=== PATIENT | female | born 1985 | race Two or more races ===

== ENCOUNTER 2023-10-14 10:00 | Inpatient (IN) | payer OTHER ==
[~2023-10-14] VITALS: Ht 165.1 cm; Wt 68.0 kg
[2023-10-14 12:24] LABS: PH,URINE 7.5 (5.0-8.0); URINE APPEARANCE Clear; URINE BILIRRUBIN Negative (NEGATIVE); URINE BLOOD Negative; URINE COLOR Yellow; URINE GLUCOSE Negative (NEGATIVE); URINE LEUKOCYTE Trace; URINE NITRATE Negative; URINE PROTEIN Negative (NEGATIVE); URINE UROBILINOGEN 0.2 E.U./dl
[2023-10-14 12:26] LABS: HEMOGLOBIN 11.8 g/dL (12.0-15.00); MEAN CELL VOLUME 73.7 fL (80.00-100.00); MEAN CORPUSCULAR HEMOGLOBIN 24.3 pg (27.00-32.0); MEAN CORPUSCULAR HGB CONC 32.9 g/dl (32.0-36.0); PLATELET COUNT 305 K/uL (150-450); RED BLOOD COUNT 4.88 M/uL (4.00-6.00)
[2023-10-14] MEDS ORDERED: CITRACAL-VIT D1 EACH PO (12:27)
[2023-10-14] MEDS ORDERED: INDERAL XL80 MG PO (12:27)
[2023-10-14] MEDS ORDERED: METHYLPREDNISOLO4 MG PO (12:31)
[2023-10-14 12:55] LABS: PARTIAL THROMBOPLASTIN TIME 28.1 SECONDS (22.0-34.0); PROTHROMBIN TIME 10.5 SECONDS (9.0-11.5)
[2023-10-14 12:56] LABS: URINE BACTERIA 833.8 uL (0.0-1933); URINE EPITHELIAL CELLS 11.8 uL (0.0-38.8); URINE WBC 3.8 uL (0.0-23.2)
[2023-10-14 13:04] LABS: BILIRUBIN TOTAL 0.5 mg/dL (0.3-1.2); CALCIUM 9.8 mg/dL (8.5-10.1); CREATININE SERUM 0.48 mg/dL (0.55-1.02); GFR 146.34; GLOBULINA 3.7 G/DL (2.4-3.5); POTASSIUM 4.2 mEq/L (3.5-5.1); TOTAL PROTEIN 7.7 gm/dL (6.4-8.2)
[2023-10-14 13:05] LABS: URINE RBC 1.7 uL (0.0-20.8)
[2023-10-24] MEDS ORDERED: DEXAMETHASONE SODIUM PHOSPHATE 4 MG/ML VIAL IV ONE (07:15)
[2023-10-24] MEDS ORDERED: ENALAPRILAT DIHYDRATE 1.25 MG/ML VIAL IV PRN (10:45)
[2023-10-24] MEDS ORDERED: ONDANSETRON HCL 2 MG/ML VIAL IV PRN (10:45)
[2023-10-24] MEDS ORDERED: TRAMADOL HCL 50 MG TABLET PO SCH (12:00)
[2023-10-24] MEDS ORDERED: ACETAMINOPHEN 500 MG GEL..CAP PO SCH (13:00)
[2023-10-24] MEDS ORDERED: Calcium Carbonate 1 TAB TABLET PO SCH (21:00)
[2023-10-25] MEDS ORDERED: LEVOTHYROXINE SODIUM 112 MCG TABLET PO SCH (06:00)
[2023-10-25] MEDS ORDERED: CYCLOBENZAPRINE HCL 5 MG TABLET PO SCH (09:00)
[2023-10-25] MEDS ORDERED: PROPRANOLOL HCL 80 MG TABLET PO SCH (09:00)
== END 2023-10-25 13:24 | disposition home or self-care (01) | DRG 627 ==
LOC: ADM 10:00 → SURG 10-24 05:30 → O/R 10-24 05:30 → CIR.AMB 10-24 07:00 → EDSTATUS 10-24 10:00 → SURH 10-24 10:00 → SURG 10-24 11:43
PROVIDERS: ADMIT Otolaryngology; ATTEND Otolaryngology
PROC: 0GTK0ZZ Resection of Thyroid Gland, Open Approach (ICD-10-PCS; principal; 2023-10-24 07:00)
DX: E05.00 Thyrotoxicosis with diffuse goiter without thyrotoxic crisis or storm (principal); Z20.822 Contact with and (suspected) exposure to COVID-19